=== PATIENT | female | born 1975 | race Caucasian/White ===

== ENCOUNTER 2022-02-23 17:48 | Emergency (ER) | payer OTHER ==
[2022-02-23 18:09] VITALS: BP 145/92; PULSE 85; RESP 18; TEMP 98; BMI 42.5
[2022-02-23 20:25] LABS: BASO % 1.2 % (0-2.0); EOS % 1.2 % (0-4.5); HEMATOCRIT 41.5 % (32.4-45.2); HEMOGLOBIN 13.6 GM/dL (10.7-15.3); LYMPH % 29.6 % (8-40); MCH 30.7 pg (25.7-33.7); MCHC 32.7 g/dl (32.0-36.0); MEAN CELL VOLUME 93.8 fl (80-96); PLATELET COUNT 323 10^3/uL (134-434); RBC 4.42 M/mm3 (3.60-5.2); RDW 13.4 % (11.6-15.6); WHITE BLOOD COUNT 10.4 K/mm3 (4.0-10.0)
[2022-02-23 20:34] LABS: INR 1.04 (0.83-1.09)
[2022-02-23 20:36] LABS: ACTIVATED PTT 30.1 SECONDS (25.2-36.5)
[2022-02-23 20:44] LABS: CHLORIDE 105 mmol/L (98-107); SODIUM 142 mmol/L (136-145)
[2022-02-23 20:45] LABS: ALBUMIN 3.7 g/dl (3.4-5.0); ANION GAP 6 MMOL/L (8-16); BLOOD UREA NITROGEN 14.3 mg/dL (7-18); CALCIUM 9.3 mg/dL (8.5-10.1); CO2 31 mmol/L (21-32); GLUCOSE,RANDOM 100 mg/dL (74-106)
[2022-02-23 20:48] LABS: CREATININE 0.7 mg/dL (0.55-1.3); SGOT/AST 35 U/L (15-37); SGPT/ALT 49 U/L (13-61)
[2022-02-23 20:50] LABS: BILIRUBIN,TOTAL 0.4 mg/dL (0.2-1); TOT PROT 7.5 g/dl (6.4-8.2)
[2022-02-23 20:51] LABS: ALK PHOS 96 U/L (45-117)
== END 2022-02-23 22:18 | disposition home or self-care (01) ==
LOC: JER 17:48
DX: R07.89 Other chest pain (principal)
CPT/HCPCS: 36415; 71046-TC-FY; 73630-TC-RT-FY; 80053; 84484; 85025; 85610; 85730; 93005; 93010; 99285-25; C9803-CS; U0003; U0005

== ENCOUNTER 2022-07-15 04:03 | Day surgery (SDC) | payer OTHER ==
[2022-07-13 13:43] VITALS: BMI 42.1
[2022-07-15 09:45] VITALS: BP 117/72; PULSE 67; RESP 18; TEMP 98
== END 2022-07-15 09:49 | disposition home or self-care (01) ==
LOC: JASU-ENDO 04:03
PROVIDERS: ATTEND Internal Medicine Gastroenterology
PROC: 0DBP8ZX Excision of Rectum, Via Natural or Artificial Opening Endoscopic, Diagnostic (ICD-10-PCS; principal; 2022-07-15 08:00)
DX: Z12.11 Encounter for screening for malignant neoplasm of colon (principal); D12.8 Benign neoplasm of rectum; K64.8 Other hemorrhoids; K57.30 Diverticulosis of large intestine without perforation or abscess without bleeding; Z86.010 Personal history of colon polyps; E11.9 Type 2 diabetes mellitus without complications; Z79.85 Long-term (current) use of injectable non-insulin antidiabetic drugs
CPT/HCPCS: 81025; 82962; 88305-TC

== ENCOUNTER 2024-03-29 12:08 | Emergency (ER) | payer OTHER ==
[2024-03-29 12:28] VITALS: BP 139/76; PULSE 96; RESP 18; TEMP 98.9; BMI 39.6
[2024-03-29] MEDS ORDERED: ACETAMINOPHEN 500 MG TABLET (FP) ONE (12:54)
[2024-03-29] MEDS ORDERED: KETOROLAC TROMETHAMINE 15 MG/ML VIAL ONE (12:54)
[2024-03-29] MEDS: KETOROLAC TROMETHAMINE 30 MG/1 ML VIAL IVPUSH ONE (12:55)
[2024-03-29] MEDS: ACETAMINOPHEN 500 MG TABLET (FP) PO ONE (13:00)
[2024-03-29 13:01] LABS: HEMATOCRIT 42.7 % (32.4-45.2); HEMOGLOBIN 14.2 G/dL (10.7-15.3); MCH 31.3 pg (25.7-33.7); MCHC 33.3 g/dl (32.0-36.0); MEAN CELL VOLUME 94.1 fl (80-96); MEAN PLT VOLUME 9.9 fl (7.5-11.1); PLATELET COUNT 276.7 10^3/uL (134-434); RBC 4.54 10^6/uL (3.60-5.2); RDW 12.9 % (11.6-15.6); WHITE BLOOD COUNT 9.1 10^3/uL (4.0-10.8)
[2024-03-29 13:14] LABS: HCG,QUALITATIVE URINE Negative
[2024-03-29 13:16] LABS: PLATELET ESTIMATE ADEQUATE
[2024-03-29 13:24] LABS: ALBUMIN 4.2 g/dl (3.4-5.0); BILIRUBIN,TOTAL 0.4 mg/dl (0.2-1); CALCIUM 9.4 mg/dl (8.5-10.1); CREATININE 0.7 mg/dl (0.6-1.3); POTASSIUM 4.1 mmol/L (3.5-5.1); TOT PROT 6.8 g/dl (6.4-8.2)
== END 2024-03-29 14:41 | disposition home or self-care (01) ==
LOC: FER 12:08
PROC: 3E0333Z Introduction of Anti-inflammatory into Peripheral Vein, Percutaneous Approach (ICD-10-PCS; principal; 2024-03-29)
DX: M25.511 Pain in right shoulder (principal); M25.512 Pain in left shoulder; R07.89 Other chest pain; R20.2 Paresthesia of skin
CPT/HCPCS: 36415; 71046-TC-FY; 80053; 81003; 84484; 84703; 85027; 93005; 99285-25